=== PATIENT | female | born 1960 | race African-American/Black ===

== ENCOUNTER 2021-04-29 11:00 | Inpatient (IN) | payer SELFPAY ==
[~2021-04-29] VITALS: Ht 175.3 cm; Wt 99.8 kg
[2021-04-29 12:01] LABS: BASOPHILS % 0.6 % (0.0-2.0); EOSINOPHILS % 0.2 % (0.0-5.0); HEMATOCRIT. 43.9 % (36.0-48.0); HEMOGLOBIN. 14.9 g/dL (12.0-16.0); LYMPHOCYTES % 27.5 % (20.0-50.0); MEAN CORPUSCULAR VOLUME 88.4 fL (81.0-99.0); MONOCYTES % 13.5 % (2.0-8.0); NEUTROPHILS % 58.2 % (40.0-76.0); PLATELET 361 x1000/uL (130-400); RED BLOOD CELL COUNT 4.97 mill/uL (4.2-5.4); RED CELL DISTRIBUTION WIDTH 13.8 % (11.6-14.6)
[2021-04-29 12:06] LABS: CHLORIDE 103 mEq/L (98-107)
[2021-04-29 12:11] LABS: ETHANOL BLOOD < 10 mg/dL
[2021-04-29] MEDS ORDERED: LORAZEPAM 2MG/ML CPJ IV ONE (12:45)
[2021-04-29 13:03] LABS: HCG SCREEN INDETERMINATE
[2021-04-29 15:28] LABS: CLARITY URINE CLEAR (CLEAR); COLOR URINE YELLOW (YELLOW); KETONES URINE NEGATIVE (NEGATIVE); LEUKOCYTE ESTERASE URINE TRACE (NEGATIVE); NITRITE URINE POSITIVE (NEGATIVE); OCCULT BLOOD URINE 1+ (NEGATIVE); PH URINE 5.5 (4.5-8.0); PROTEIN URINE NEGATIVE (NEGATIVE); SPECIFIC GRAVITY URINE 1.006 (1.005-1.030); UROBILINOGEN URINE 0.2 E.U./dL (0.2-1.0)
[2021-04-29 15:41] LABS: OPIATES URINE SCREEN NEGATIVE (NEGATIVE)
[2021-04-29 15:42] LABS: *AMPHETAMINES SCREEN URINE NEGATIVE (NEGATIVE); *BARBITURATES SCREEN URINE NEGATIVE (NEGATIVE); *BENZODIAZEPINES SCREEN URINE NEGATIVE (NEGATIVE); *COCAINE SCREEN URINE NEGATIVE (NEGATIVE); CANNABINOID URINE SCREEN NEGATIVE (NEGATIVE); METHADONE URINE SCREEN NEGATIVE (NEGATIVE); PHENCYCLIDINE URINE SCREEN NEGATIVE (NEGATIVE)
[2021-04-29] MEDS ORDERED: CEFTRIAXONE 1 G PREMIX 50 ML IV SCH (16:15)
[2021-04-29] MEDS ORDERED: SODIUM CHLORIDE 0.9% 1,000 ML IV ONE (17:00)
[2021-04-29] MEDS ORDERED: HYDRALAZINE 20MG/ML VIAL IV ONE (17:00)
[2021-04-29] MEDS ORDERED: NICARDIPINE 50 MG in SODIUM CHLORIDE 0.9% 230 ML IV PRN ×2 (18:15→18:30)
[2021-04-29] MEDS ORDERED: NICARDIPINE 40MG/200ML PREMIX 200 ML IV PRN (18:21)
[2021-04-29] MEDS ORDERED: MORPHINE SULFATE 4 MG/ML CPJ (NOT FOR IM USE) IV ONE (19:30)
[2021-04-30] VITALS (8 sets, daily range): BP systolic 139–181; BP diastolic 68–109
[2021-04-30] MEDS ORDERED: CEFTRIAXONE 1 G PREMIX 50 ML IV SCH (09:45)
[2021-04-30] MEDS ORDERED: ACETAMINOPHEN 325MG TABLET PO PRN (09:45)
[2021-04-30] MEDS ORDERED: ONDANSETRON HCL 4MG/2ML INJ IV PRN (09:45)
[2021-04-30] MEDS: LISINOPRIL 20MG TABLET PO SCH (12:08)
[2021-04-30] MEDS: CEFTRIAXONE 1,000 MG in DEXTROSE 5% WATER 50 ML IV SCH (15:07)
[2021-04-30] MEDS: LORAZEPAM 1MG TABLET PO PRN (22:38)
[2021-05-01] VITALS (12 sets, daily range): BP systolic 109–164; BP diastolic 58–91
[2021-05-01] MEDS: LISINOPRIL 20MG TABLET PO SCH (08:30)
[2021-05-01] MEDS ORDERED: KETOROLAC 15MG/ML VIAL IV PRN (10:15)
[2021-05-01] MEDS: CLONIDINE 0.1MG TABLET PO PRN ×2 (12:43→18:47)
[2021-05-01] MEDS: CEFTRIAXONE 1,000 MG in DEXTROSE 5% WATER 50 ML IV SCH (14:44)
[2021-05-01] MEDS: LORAZEPAM 1MG TABLET PO PRN (18:34)
[2021-05-01] MEDS: METOPROLOL TARTRATE 50MG TABLET PO SCH ×2 (21:57→22:09)
[2021-05-01] MEDS ORDERED: LORAZEPAM 2MG/ML CPJ IV PRN (22:00)
[2021-05-02] VITALS (8 sets, daily range): BP systolic 104–166; BP diastolic 57–108
[2021-05-02] MEDS: LISINOPRIL 20MG TABLET PO SCH (08:03)
[2021-05-02] MEDS: METOPROLOL TARTRATE 50MG TABLET PO SCH (08:03)
[2021-05-02] MEDS ORDERED: LEVO500T89 MT (10:39)
[2021-05-02 11:35] LABS: T4 FREE 1.31 ng/dL (0.76-1.46)
[2021-05-02] MEDS: CEFTRIAXONE 1,000 MG in DEXTROSE 5% WATER 50 ML IV SCH (15:00)
== END 2021-05-02 18:21 | disposition home or self-care (01) | DRG 52 ==
LOC: ER 11:00 → EDBEDREQSVC 18:13 → MICUSO 18:13 → EDBEDREQTM 18:13 → EDBEDREQ 18:13 → EDBEDREQSVC 18:39 → 5EST 04-30 07:08
PROVIDERS: ADMIT Internal Medicine; ATTEND Internal Medicine
DX: G93.41 Metabolic encephalopathy (principal); E66.9 Obesity, unspecified; I16.0 Hypertensive urgency; N39.0 Urinary tract infection, site not specified; Z20.822 Contact with and (suspected) exposure to COVID-19; I10 Essential (primary) hypertension; Z68.32 Body mass index [BMI] 32.0-32.9, adult; Z71.3 Dietary counseling and surveillance
CPT/HCPCS: 36415; 70544; 70553; 71045; 80053; 80305; 80307; 80320; 80329; 81003; 82140; 83605; 83880; 84436; 84439; 84443; 84480; 84702; 84703; 85025; 87426; 93005; 93971; 99291; J0360; J0696; J1885; J2060; J2270; J3490; J7050; J7060; G0480

== ENCOUNTER 2021-05-03 22:26 | Emergency (ER) | payer SELFPAY ==
[~2021-05-03] VITALS: Ht 170.2 cm; Wt 91.0 kg
[~2021-05-03 22:26] MED LIST: LEVO500T89 MT
[2021-05-03] MEDS ORDERED: OLANZAPINE 10 MG/VIAL IM STA (23:36)
[2021-05-03] MEDS ORDERED: LORAZEPAM 2MG/ML CPJ IV STA (23:36)
[2021-05-04] MEDS ORDERED: ZIPRASIDONE MESYLATE 20MG/VIAL IM ONE ×2 (00:45→03:45)
[2021-05-04] MEDS ORDERED: KETAMINE HCL 50 MG/ML 10ML IM ONE (02:45)
[2021-05-04 03:01] LABS: BASOPHILS % 0.4 % (0.0-2.0); HEMATOCRIT. 39.5 % (36.0-48.0); HEMOGLOBIN. 13.6 g/dL (12.0-16.0); LYMPHOCYTES % 11.6 % (20.0-50.0); MEAN CORPUSCULAR HEMOGLOBIN 30.5 pg (28.0-32.0); MEAN CORPUSCULAR VOLUME 88.4 fL (81.0-99.0); MEAN PLATELET VOLUME 8.1 fl (7.4-10.4); MONOCYTES % 9.6 % (2.0-8.0); NEUTROPHILS % 78.4 % (40.0-76.0); PLATELET 380 x1000/uL (130-400); RED BLOOD CELL COUNT 4.47 mill/uL (4.2-5.4); RED CELL DISTRIBUTION WIDTH 13.5 % (11.6-14.6)
[2021-05-04 03:21] LABS: CHLORIDE 100 mEq/L (98-107)
[2021-05-04 03:27] LABS: ETHANOL BLOOD < 10 mg/dL
[2021-05-04] MEDS ORDERED: HALOPERIDOL LACTATE 5MG/ML VIAL IM ONE ×2 (07:15→14:45)
[2021-05-04] MEDS ORDERED: DIPHENHYDRAMINE 50MG/ML VIAL IV ONE (07:15)
[2021-05-04] MEDS ORDERED: LORAZEPAM 2MG/ML CPJ IV ONE (07:15)
[2021-05-04] MEDS: OLANZAPINE 5MG TABLET ODT PO SCH ×2 (09:00→18:15)
[2021-05-04] MEDS: DIVALPROEX SODIUM 500MG DR TABLET PO SCH ×2 (09:00→20:29)
[2021-05-04] MEDS ORDERED: LORAZEPAM 2MG/ML CPJ IM ONE (14:45)
[2021-05-04 18:35] LABS: HEPATITIS B SURFACE ANTIGEN NEGATIVE
[2021-05-04 19:35] LABS: CLARITY URINE CLEAR (CLEAR); COLOR URINE YELLOW (YELLOW); KETONES URINE TRACE (NEGATIVE); LEUKOCYTE ESTERASE URINE NEGATIVE (NEGATIVE); NITRITE URINE NEGATIVE (NEGATIVE); OCCULT BLOOD URINE TRACE (NEGATIVE); PH URINE 5.5 (4.5-8.0); PROTEIN URINE NEGATIVE (NEGATIVE); UROBILINOGEN URINE 0.2 E.U./dL (0.2-1.0)
[2021-05-04] MEDS ORDERED: OLANZAPINE 10 MG/VIAL IM ONE (20:15)
[2021-05-05] MEDS: LISINOPRIL 10MG TABLET PO SCH ×2 (02:06→09:44)
[2021-05-05] MEDS: DIVALPROEX SODIUM 500MG DR TABLET PO SCH (09:00)
[2021-05-05] MEDS: OLANZAPINE 5MG TABLET ODT PO SCH ×2 (09:07→17:47)
[2021-05-05 12:04] LABS: *AMPHETAMINES SCREEN URINE NEGATIVE (NEGATIVE); *BENZODIAZEPINES SCREEN URINE NEGATIVE (NEGATIVE); *COCAINE SCREEN URINE NEGATIVE (NEGATIVE); CANNABINOID URINE SCREEN NEGATIVE (NEGATIVE); OPIATES URINE SCREEN NEGATIVE (NEGATIVE); PHENCYCLIDINE URINE SCREEN NEGATIVE (NEGATIVE)
[2021-05-05 19:09] VITALS: BP 179/95
== END 2021-05-05 19:29 ==
LOC: ER 22:26
DX: R41.82 Altered mental status, unspecified (principal); R46.2 Strange and inexplicable behavior; I10 Essential (primary) hypertension; Z20.822 Contact with and (suspected) exposure to COVID-19; Z98.890 Other specified postprocedural states
CPT/HCPCS: 36415; 93005; 96372; 96374; 96375; 96376; 99285; C9803; J1200; J1630; J2060; J3486; J3490; U0005